=== PATIENT | female | born 1990 | race Caucasian/White ===

== ENCOUNTER 2016-10-03 00:21 | Inpatient (IN) | payer OTHER ==
[~2016-10-03] VITALS: Ht 180.3 cm; Wt 151.0 kg
[2016-10-03] MEDS ORDERED: PREN-546 PO (07:04)
[2016-10-03] MEDS ORDERED: CITRIC ACID/SODIUM CITRATE 30 ML UDC PO ONE (07:05)
[2016-10-03] MEDS ORDERED: IRON65TA11 PO (07:05)
[2016-10-03] MEDS ORDERED: IBUPROFEN 800 MG TAB PO PRN ×2 (07:05→11:15)
[2016-10-03] MEDS ORDERED: CITRIC ACID/SODIUM CITRATE 30 ML UDC PO SCH (07:13)
[2016-10-03 07:31] LABS: BILIRUBIN,URINE 1+ (NEGATIVE); BLOOD, URINE 1+ (NEGATIVE); COLOR,URINE YELLOW (YELLOW); LEUKOCYTE ESTERASE ,URINE NEGATIVE (NEGATIVE); NITRITE, URINE NEGATIVE (NEGATIVE); PROTEIN,URINE TRACE (NEGATIVE); UGLUCOSE NEGATIVE (NEGATIVE)
[2016-10-03 07:37] LABS: BASOPHILS % (AUTO) 0.6 % (0.0-2.0); EOSINOPHILS # (AUTO) 0.1 K/uL (0-0.4); EOSINOPHILS % (AUTO) 1.3 % (0.0-4.0); HEMATOCRIT 27.8 % (36-48); HEMOGLOBIN 8.4 g/dL (12.0-16.0); LYMPHOCYTES # (AUTO) 1.3 K/uL (2.5-16.5); LYMPHOCYTES % (AUTO) 24.4 % (20.5-51.1); MEAN CORPUSCULAR HEMOGLOBIN 19 pg (27-31); MEAN CORPUSCULAR HGB CONC 30 g/dL (33-37); MEAN CORPUSCULAR VOLUME 64 fL (80-94); MONOCYTES # (AUTO) 0.4 K/uL (0.8-1.0); MONOCYTES % (AUTO) 8.1 % (1.7-9.3); NEUTROPHILS # (AUTO) 3.7 K/uL (1.8-7.7); NEUTROPHILS % (AUTO) 65.6 % (42.2-75.2); PLATELET COUNT (AUTO) 275 K/uL (140-450); RED BLOOD CELL COUNT(AUTO) 4.35 MIL/uL (4.20-5.40); RED CELL DISTRIBUTION WIDTH 17.3 % (11.6-13.7); WHITE BLOOD COUNT (AUTO) 5.5 K/uL (4.8-10.8)
[2016-10-03 07:47] LABS: ALBUMIN 2.1 g/dL (3.4-5.0); ANION GAP 12.2 (8-16); CALCIUM 8.3 mg/dL (8.5-10.1); CARBON DIOXIDE 22.3 mmol/L (21-32); CREATININE 0.5 mg/dL (0.6-1.3); POTASSIUM 3.5 mmol/L (3.5-5.1); TOTAL BILIRUBIN 0.6 mg/dL (0.0-1.0); TOTAL PROTEIN, SERUM 6.4 g/dL (6.4-8.2)
[2016-10-03 07:49] LABS: APPEARANCE,URINE CLEAR (CLEAR)
[2016-10-03 07:50] LABS: BACTERIA,URINE 1+ /HPF (None Seen); ICTOTEST NEGATIVE (NEGATIVE); MUCUS,URINE 3+ /LPF (None Seen); RBC,URINE 0-5 (RARE) /HPF (0-5); WBC,URINE 0-5 (RARE) /HPF (0-5)
--- NOTE | 2016-10-03 07:51 | NUR ---
PATIENT HAS BEEN SCREENED AND CATEGORIZED LOW NUTRITION RISK. PATIENT WILL BE SEEN WITHIN 7 DAYS OF ADMISSION. 10/09/[address]
[2016-10-03] MEDS ORDERED: PENICILLIN G BENZATHINE L-A 2.4 MU/4 ML SYR IM ONE (07:55)
[2016-10-03] MEDS ORDERED: OXYTOCIN 10 UNITS/ML VIAL ONE ×2 (09:08→09:55)
[2016-10-03] MEDS: LACTATED RINGERS 1,000 ML IV SCH (09:24)
[2016-10-03] MEDS ORDERED: BUPIVACAINE-MPF 0.75% 10 ML VIAL INJ ONE (09:55)
[2016-10-03] MEDS ORDERED: ONDANSETRON 4 MG/2 ML VIAL ONE ×2 (09:55→10:20)
[2016-10-03] MEDS ORDERED: ePHEDrine 50 MG/ML VIAL ONE (09:55)
[2016-10-03] MEDS ORDERED: MORPHINE PRES FREE 10 MG/10 ML AMP IV ONE (10:10)
[2016-10-03] MEDS ORDERED: MIDAZOLAM 2 MG/2 ML VIAL ONE (10:10)
[2016-10-03] MEDS ORDERED: diphenhydrAMINE 50 MG/ML VIAL IVP PRN (10:45)
[2016-10-03] MEDS ORDERED: ONDANSETRON 4 MG/2 ML VIAL IVP PRN (10:45)
[2016-10-03] MEDS ORDERED: TRIMETHOBENZAMIDE 200 MG/2 ML SYR IM PRN (11:15)
[2016-10-03] MEDS ORDERED: TEMAZEPAM 15 MG CAP PO PRN (11:15)
[2016-10-03] MEDS ORDERED: SIMETHICONE 80 MG TAB.CHEW PO PRN (11:15)
[2016-10-03] MEDS ORDERED: METHYLERGONOVINE 0.2 MG/ML AMP IM PRN (11:15)
[2016-10-03] MEDS ORDERED: MEASLES, MUMPS, AND RUBELLA 1 VIAL SQVAC PRN (11:15)
[2016-10-03] MEDS ORDERED: OXYTOCIN 20 UNITS/LR PREMIX 1,000 ML IV ONE (11:42)
[2016-10-03] MEDS: OXYTOCIN 20 UNITS/LR PREMIX 1,000 ML IV SCH ×2 (13:58→22:18)
[2016-10-03] MEDS: DOCUSATE SOD/SENNA 50/8.6 MG 1 TAB PO SCH (19:59)
[2016-10-03] MEDS: KETOROLAC 30 MG/ML VIAL IVP PRN (22:29)
[2016-10-04] MEDS: KETOROLAC 30 MG/ML VIAL IVP PRN (04:32)
[2016-10-04] MEDS: OXYTOCIN 20 UNITS/LR PREMIX 1,000 ML IV SCH (05:03)
[2016-10-04 06:53] LABS: BASOPHILS % (AUTO) 0.2 % (0.0-2.0); EOSINOPHILS # (AUTO) 0.1 K/uL (0-0.4); EOSINOPHILS % (AUTO) 1.1 % (0.0-4.0); HEMATOCRIT 25.5 % (36-48); LYMPHOCYTES % (AUTO) 10.1 % (20.5-51.1); MEAN CORPUSCULAR HEMOGLOBIN 20 pg (27-31); MEAN CORPUSCULAR HGB CONC 31 g/dL (33-37); MEAN CORPUSCULAR VOLUME 64 fL (80-94); MONOCYTES # (AUTO) 0.4 K/uL (0.8-1.0); MONOCYTES % (AUTO) 4.3 % (1.7-9.3); NEUTROPHILS # (AUTO) 8.6 K/uL (1.8-7.7); NEUTROPHILS % (AUTO) 84.3 % (42.2-75.2); PLATELET COUNT (AUTO) 247 K/uL (140-450); RED BLOOD CELL COUNT(AUTO) 4.02 MIL/uL (4.20-5.40); RED CELL DISTRIBUTION WIDTH 17.3 % (11.6-13.7); WHITE BLOOD COUNT (AUTO) 10.1 K/uL (4.8-10.8)
[2016-10-04] MEDS ORDERED: ACETAMINOPHEN 325 MG TAB PO PRN (16:15)
[2016-10-04] MEDS ORDERED: AMPICILLIN 2,000 MG VIAL ONE (16:32)
[2016-10-04] MEDS: LACTATED RINGERS 1,000 ML IV SCH (16:36)
[2016-10-04] MEDS: AMPICILLIN 2,000 MG in NACL 0.9% 100 ML IV SCH (16:40)
[2016-10-04] MEDS: DOCUSATE SOD/SENNA 50/8.6 MG 1 TAB PO SCH (20:02)
[2016-10-04] MEDS: HYDROcodone/APAP 5/325 MG 1 TAB TAB PO PRN (20:03)
[2016-10-05] MEDS: AMPICILLIN 2,000 MG in NACL 0.9% 100 ML IV SCH ×4 (00:24→12:18)
[2016-10-05] MEDS ORDERED: AMPICILLIN 2,000 MG VIAL ONE ×4 (00:26→12:21)
[2016-10-05] MEDS: HYDROcodone/APAP 5/325 MG 1 TAB TAB PO PRN (02:04)
[2016-10-05] MEDS: LACTATED RINGERS 1,000 ML IV SCH (02:38)
[2016-10-05] MEDS: oxyCODONE/APAP 5/325 MG 1 TAB TAB PO PRN ×2 (11:42→18:49)
[2016-10-05] MEDS: AMPICILLIN 500 MG CAP PO SCH (18:48)
[2016-10-06] MEDS: AMPICILLIN 500 MG CAP PO SCH ×3 (00:04→12:14)
[2016-10-06] MEDS ORDERED: IBUP-2213 PO (11:33)
== END 2016-10-06 13:55 | disposition home or self-care (01) | DRG 540 ==
LOC: MFCC 06:01
PROVIDERS: ADMIT Obstetrics & Gynecology; ATTEND Obstetrics & Gynecology
PROC: 10D00Z1 Extraction of Products of Conception, Low, Open Approach (ICD-10-PCS; principal; 2016-10-04)
PROC: 3E0234Z Introduction of Serum, Toxoid and Vaccine into Muscle, Percutaneous Approach (ICD-10-PCS; 2016-10-04)
DX: O34.219 Maternal care for unspecified type scar from previous cesarean delivery (principal); Z68.42 Body mass index [BMI] 45.0-49.9, adult; D64.9 Anemia, unspecified; O99.02 Anemia complicating childbirth; O99.214 Obesity complicating childbirth; E66.9 Obesity, unspecified; Z37.0 Single live birth; Z86.32 Personal history of gestational diabetes; Z23 Encounter for immunization; Z3A.39 39 weeks gestation of pregnancy
CPT/HCPCS: 36415; 51702; 80053; 81001; 85025; 86592; 86886; 86900; 86901; 87040; 90715; J0290; J0561; J0690; J1885; J2250; J2270; J2405; J2590; J3490; J7060; J7120